=== PATIENT | male | born 1940 | race Caucasian/White ===

== ENCOUNTER 2018-01-07 13:57 | Emergency (ER) | payer MEDICARE, OTHER, SELFPAY ==
[2018-01-07 13:58] VITALS: BP 118/75; PULSE 86; RESP 16; TEMP 37; O2SAT 95; BMI 22.1
--- NOTE | 2018-01-07 14:05 | CT_ITS ---
STUDY: CT BRAIN WITHOUT CONTRAST REASON FOR EXAM: Male, 77 years old. Trauma RADIATION DOSAGE (If Supplied By Facility): CTDIvol = ( 44.99 ) mGy, DLP = ( 796.11 ) mGycm TECHNIQUE: Transaxial CT imaging of the brain was performed without administration of intravenous contrast material. Individualized dose optimization techniques were used for this CT. COMPARISON: 12/15/2017 FINDINGS: There is no acute bleed or infarct. There are stable chronic ischemic and atrophic changes. The ventricles are normal in configuration. There is no hydrocephalus. The visualized paranasal sinuses are clear. The mastoid air cells are well aerated. There is no skull fracture. CT/Brain/Head without Contrast IMPRESSION: Stable chronic ischemic and atrophic changes. No acute intracranial abnormality. Electronically Signed: Yon Candelario, at 14:57 EST Tel , Service support ,
[2018-01-07 14:07] VITALS: BP 118/75; PULSE 88; RESP 17; O2SAT 94
[2018-01-07 14:23] LABS: Absolute Neutrophil Count 4.7 X10^3/uL (2.0-7.7); Basophil# 0.02 X10^3/uL; Basophil% 0.3 % (0-1); Eosinophil# 0.12 X10^3/uL; Eosinophils% 1.8 % (0-5); Hematocrit 42.7 % (40-54); Lymphocyte % 16.1 % (19-41); Mean Corp Hgb Conc 35.1 g/gl (32-36); Mean Corpuscular Hgb 34.5 pg (27.0-32.0); Mean Corpuscular Volume 98.2 fL (80-94); Mean Platelet Vol. 9.4 fl (6.2-12.0); Monocyte# 0.86 X10^3/uL; Monocyte% 12.6 % (0-10); Neutrophil # 4.73 X10^3/uL (2.7-7.7); Neutrophil % 68.9 % (47-70); POSITIVE COUNT NO; POSITIVE DIFFERENTIAL NO; POSITIVE MORPHOLOGY NO; Platelet Count 173 K/mm3 (150-450); RBC Distribution Width CV 12.9 % (11.6-14.6); RBC Distribution Width SD 45.1 fl (35.1-43.9); Red Blood Count 4.35 M/mm3 (4.6-6.2); White Blood Count 6.9 K/mm3 (4.4-11.0)
[2018-01-07 14:27] LABS: Bacteria 0 SEEN /hpf (None Seen); Mucous, Urine 0 SEEN /hpf (<or=2+); Red Blood Cells-Urine 0 SEEN /hpf (0-5); Squamous Epithelial Cells - UA 0 SEEN /hpf (0-5); White Blood Cells 0 SEEN /hpf (0-5)
[2018-01-07 14:29] LABS: Anion Gap 7 (5-15); BUN 20 mg/dL (7-18); BUN/Creat Ratio 19.8 RATIO (10-20); Calcium,Total 8.8 mg/dL (8.5-10.1); Chloride 105 mmol/L (98-107); Creatinine, Serum 1.01 mg/dL (0.70-1.30); EST Glomerular Filtration Rate 76 mL/min (>60); Est Glom Filt Rate - Afr Amer 92 mL/min (>60); Estimated Creatinine Clearance 58.17 ml/min; Glucose 265 mg/dL (74-106); Potassium 4.1 mmol/L (3.5-5.1); Sodium Level 140 mmol/L (136-145)
--- NOTE | 2018-01-07 14:30 | ED.VISSUMM ---
- ER Visit Summary Date of Service: 01/07/18 Chief Complaint: Brought to ER because of decreased level of consciousness History of Present Illness: The patient is a 77 M arrived by ambulance because of decreased level of conscious. He had a reported fall with head injury 2 days ago. Based on old records he is on Coumadin secondary to CVA. He has a PFO. He stopped speaking and midsentence and closes eyes. He has to be awakened repeatedly. Uncertain reliability since he is disoriented and some of his answers are not related to any questions asked. He does admit to head pain. And he does admit to not feeling well. Based on review of old records he has history of dementia, CVA secondary to PFO, type 2 diabetes, hypercholesterolemia, benign prostatic hypertrophy and GERD. Physical Examination: Vital signs are unremarkable. He is afebrile. He is not alert and he is not oriented. He is unable to follow simple commands. Pupils are 1-2 mm size and sluggishly reactive. TMs are normal. Posterior pharynx without erythema x-ray. Uvula is midline. Nares are patent. There is no drainage noted. Trachea is midline. There is no evidence of trauma to the head. There is no clinical signs of basal skull fracture. There is no pain palpation of the cervical spine. Lungs are clear to auscultation. Heart is regular. Abdomen soft nontender. No pain the patient the pelvis. He has no pain palpation of the upper lower extremities. He is able to hold his arms and legs up against gravity. DTRs are symmetric with no clonus or Babinski sign. Test Results: CBC is unremarkable. BMP is marked for glucose of 265. UA is unremarkable. CT of the head was reviewed by me with no acute process. Formal read reveals no evidence of epidural, subdural, subarachnoid hemorrhage or contusion. There is no fracture noted either. Emergency Department Course and Treatment: Since he is on Coumadin and has history of head trauma CT of the head was obtained as well as PT/INR. Also a metabolic infectious workup was undertaken which included a BMP, CBC and UA. Urine was obtained by straight catheterization. Treatment Plan: Spoke with . She feels comfortable taking him home. She states she probably would appreciate assistance and help. Will place consult the case management to contact her on Tuesday regarding resources and what is available to help her out. Disposition: Discharge to home with spouse and family members Impression: 1. Closed head injury 2. High risk medication, Coumadin 3. Frequent falls 4. History of CVA This note was generated with [employer] dictation software. It may contain incorrect words, spelling, and punctuation that were not noted in review of the chart prior to signing ED Disposition - Plan for ED Patient: Disposition: Home or Assisted Living Chief Complaint: Confusion Instructions: ED Mechanical Fall, ED Altered Loc Referrals: Belem Zepeda MD [Primary Care Provider] - As Needed
[2018-01-07 14:32] LABS: Color, Urine Yellow (Yellow); Glucose, Dipstick 1000 mg/dl (Normal); Ketone-Dipstick 50 mg/dl (Negative); Leukocyte Esterase-Dipstick Negative /ul (Negative); Nitrite-Dipstick Negative (Negative); Occult Blood-Urine 25 /ul (Negative); Protein-Dipstick 30 mg/dl (Negative); Specific Gravity, Urine 1.015 (1.002-1.030); Urine Bilirubin Dipstick Negative (Negative); Urine Clarity Clear (Clear); Urine Urobilinogen Normal (Normal)
[2018-01-07 14:51] LABS: Prothrombin Time (Protime)PT. 22.2 SECONDS (11.7-14.9)
[2018-01-07 15:30] VITALS: BP 122/75; PULSE 69; RESP 15; O2SAT 96
== END 2018-01-07 15:30 | disposition home or self-care (01) ==
PROVIDERS: Emergency Provider Emergency Medicine; Family Provider Internal Medicine; PCP Internal Medicine
DX: S09.90XA Unspecified injury of head, initial encounter (principal); R41.0 Disorientation, unspecified; W19.XXXA Unspecified fall, initial encounter; Y93.9 Activity, unspecified; Y92.9 Unspecified place or not applicable; Z79.01 Long term (current) use of anticoagulants; R29.6 Repeated falls; Z86.73 Personal history of transient ischemic attack (TIA), and cerebral infarction without residual deficits; F03.90 Unspecified dementia, unspecified severity, without behavioral disturbance, psychotic disturbance, mood disturbance, and anxiety; K21.9 Gastro-esophageal reflux disease without esophagitis; E11.9 Type 2 diabetes mellitus without complications; E78.00 Pure hypercholesterolemia, unspecified; Q21.1 Atrial septal defect; N40.0 Benign prostatic hyperplasia without lower urinary tract symptoms; Z79.4 Long term (current) use of insulin; Z79.899 Other long term (current) drug therapy
CPT/HCPCS: 70450; 80048; 81001; 85025; 85610; 99285; P9612

== ENCOUNTER 2018-06-01 20:27 | Emergency (ER) | payer MEDICARE, OTHER, SELFPAY ==
[2018-06-01 20:28] VITALS: BP 111/76; PULSE 97; RESP 14; TEMP 36.5; O2SAT 98; BMI 19.9
--- NOTE | 2018-06-01 23:13 | ED.VISSUMM ---
- ER Visit Summary Date of Service: 06/01/18 Chief Complaint: Diarrhea History of Present Illness: The patient is a 77 M with history of Alzheimer's dementia and stroke, on Coumadin, who presents for 4 days of diarrhea. Patient has been having watery diarrhea with some lumps of stool for the last 4 days. He has had decreased appetite as well. No recent antibiotic use, history of C. difficile, recent travel, recent hospitalization or stay in a prison facility. Patient is having up to 3 episodes daily. No noted fever by family. History limited from patient secondary to dementia. Physical Examination: Vital signs: afebrile, hemodynamically stable, no hypoxia on room air General: well nourished, well developed, in no distress Skin: warm, dry, no rash, no pallor HEENT: normocephalic and atraumatic; PERRL, EOMI, moist mucous membranes Cardiovascular: regular rate and rhythm without murmurs, no peripheral edema, 2+ pulses all distal extremities Respiratory: No increased work of breathing, lungs are clear to auscultation bilaterally, no rales, rhonchi or wheezing Abdominal: Abdomen is soft, mildly tender with hyperactive bowel sounds, no guarding or rebound, no masses MSK: Moves all extremities, no deformities, normal strength Neuro: Awake and alert, oriented to self. No focal deficits noted Test Results: Abnormal Lab Results 06/02/18 06/02/18 06/02/18 00:15 00:30 00:30 WBC 4.7 RBC 4.03 L Hgb 13.3 Hct 38.6 L MCV 95.8 H MCH 33.0 H MCHC 34.5 RDW 12.9 RDW Differential 45.4 H Plt Count 139 L MPV 9.0 Immature Gran % (Auto) 0.200 Neut % (Auto) 55.4 Lymph % (Auto) 24.6 [place] % (Auto) 17.9 H Eos % (Auto) 1.7 Baso % (Auto) 0.2 Absolute Neuts (auto) 2.6 Absolute Lymphs (auto) 1.15 Total Counted Not Reportable PT INR APTT Sodium 139 Potassium 2.9 L Chloride 102 Carbon Dioxide 30.0 Anion Gap 7 BUN 12 Creatinine 0.80 Estim Creat Clear Calc 66.11 Est GFR (MDRD) Af Amer 120 Est GFR (MDRD) Non-Af 99 BUN/Creatinine Ratio 14.9 Glucose 168 H Lactic Acid Calcium 8.0 L Total Bilirubin 1.10 H AST 19 ALT 18 Alkaline Phosphatase 56 Troponin I Total Protein 6.3 L Albumin 3.0 L Globulin 3.3 Albumin/Globulin Ratio 0.9 Lipase 50 L Urine Color Yellow Urine Clarity Clear Urine pH 5.0 Ur Specific [place] 1.020 Urine Protein 100 H Urine Glucose (UA) 1000 H Urine Ketones 5 H Urine Occult Blood 50 H Urine Nitrite Negative Urine Bilirubin Negative Urine Urobilinogen Normal Ur Leukocyte Esterase Negative Urine RBC 0 SEEN Urine WBC 0 SEEN Ur Squamous Epith Cells 0 SEEN Urine Bacteria 0 SEEN Urine Mucus 0 SEEN 06/02/18 06/02/18 06/02/18 00:30 00:30 01:12 WBC RBC Hgb Hct MCV MCH MCHC RDW RDW Differential Plt Count MPV Immature Gran % (Auto) Neut % (Auto) Lymph % (Auto) [place] % (Auto) Eos % (Auto) Baso % (Auto) Absolute Neuts (auto) Absolute Lymphs (auto) Total Counted PT 35.5 H INR 3.5 H* APTT 57.3 H Sodium Potassium Chloride Carbon Dioxide Anion Gap BUN Creatinine Estim Creat Clear Calc Est GFR (MDRD) Af Amer Est GFR (MDRD) Non-Af BUN/Creatinine Ratio Glucose Lactic Acid 2.1 H Calcium Total Bilirubin AST ALT Alkaline Phosphatase Troponin I < 0.015 Total Protein Albumin Globulin Albumin/Globulin Ratio Lipase Urine Color Urine Clarity Urine pH Ur Specific [place] Urine Protein Urine Glucose (UA) Urine Ketones Urine Occult Blood Urine Nitrite Urine Bilirubin Urine Urobilinogen Ur Leukocyte Esterase Urine RBC Urine WBC Ur Squamous Epith Cells Urine Bacteria Urine Mucus Clinical Impression(s) from Imaging Studies Abdomen/Pelvis CT 06/02/18 00:10 IMPRESSION: 1. Apparent abnormal thickening of the vee of the transverse colon suggesting sequela of acute and/or chronic colitis. 2. Cholelithiasis. Electronically Signed: Latasha Bonilla MD at 1:59 EDT , Service support , Chest X-Ray 06/02/18 01:45 IMPRESSION: No radiographic evidence of acute cardiopulmonary disease. Electronically Signed: Latasha Bonilla MD at 2:27 EDT , Service support , Emergency Department Course and Treatment: Patient presents for eval for diarrhea for 4 days. 2-3 episodes per day and description of diarrhea is less concerning for C-diff, and pt has no risk factors for joe it. Pt given IV hydration. Workup showed no leukocytosis, K of 2.9, no UTI, lactate mildly elevated at 2.1, suspect due to mild dehydration. CT abd/pel shows nonspecific transverse colitis of acute vs. chronic nature, likely related to pt's diarrhea. Family concerned of pt having intermittent c/o chest pain, so EKG and trop added, with no EKG changes and neg trop. Pt is very well appearing and we discussed the risks/benefits of inpatient vs outpatient management, as pt has dementia and is already starting to become irritated at bieng in bed and having an IV in place. Patient has no findings that necessitate definite hospitalization for treatment. Pt was given oral K repletion, and family was amenable to outpatient tx. Pt rx Klor-con powder they can mix in food or beverage. Hydration encouraged. They will use imodium for diarrhea. F/U with PCP. Pt dc home. Treatment Plan: [] Disposition: [] Impression: Diarrhea, transverse colitis, hypokalemia, Alzheimer's dementia This note was generated with [employer] dictation software. It may contain incorrect words, spelling, and punctuation that were not noted in review of the chart prior to signing ED Disposition - Plan for ED Patient: Disposition: Home or Assisted Living Chief Complaint: Diarrhea Instructions: ED Potassium Deficiency, ED Vomiting Diarrhea Nonspecific Ad Prescriptions: Potassium Chloride [Klor-Con] 20 meq PO BID 7 Days #14 packet Referrals: Belem Zepeda MD [Primary Care Provider] - 1-2 Days if not improving Additional Instructions: You may use Imodium as needed for diarrhea. Please follow the instructions on the labeling. Your potassium was low today. Please take the potassium supplement twice daily for 1 week. Follow-up with your doctor for reevaluation of your potassium. Please also follow-up with your doctor regarding your diarrhea. Try to drink plenty of fluids to stay hydrated. If you have any worsening of your condition or any new concerning symptoms, please return immediately to the emergency department for another evaluation.
--- NOTE | 2018-06-02 00:10 | CT_ITS ---
STUDY: CT ABDOMEN AND PELVIS WITHOUT CONTRAST REASON FOR EXAM: Male, 77 years old. Diarrhea since May 28, 2018. Patient has had appendectomy. RADIATION DOSAGE (If Supplied By Facility): CTDIvol = ( 6.61 ) mGy, DLP = ( 338.67 ) mGycm TECHNIQUE: Transaxial images were obtained from the dome of the diaphragm to the symphysis pubis without oral contrast, and without intravenous contrast. Sagittal and coronal images were reconstructed. Individualized dose optimization techniques were used for this CT. COMPARISON: None. FINDINGS: There is focal pleural thickening adjacent to the posterior chest wall. This measures approximately 3.6 x 2.1 x 1.2 cm in size. There is mild bilateral basilar dependent atelectasis. This was present on the previous CT and may represent some pleural fibrosis. The visualized portions of the heart are within normal limits. Normal liver. There is a solitary gallstone. Normal spleen. There is diffuse atrophy of the pancreas. Normal bilateral adrenal glands. Normal right kidney. Normal left kidney. There is some thickening of the vee of the gastric fundus measuring up to 2.2 cm in size. There is no evidence for dilated bowel, ascites or pneumoperitoneum. Small bowel has a grossly normal appearance. There is apparent thickening of the vee the transverse colon which may be the result of acute or chronic inflammation. Scattered colonic diverticuli are present. There is non-visualization of the appendix. There is multifocal atherosclerotic calcification of the abdominal aorta with elongation and tortuosity, but without a demonstrated aneurysm. Normal inferior vena cava. There is borderline retroperitoneal lymphadenopathy with enlarged nodes no greater than 10mm in the short axis diameter. Normal urinary bladder. Normal visualized prostate gland. Normal abdominal wall. The bones appear osteopenic. There are multilevel degenerative changes of the most severe occurring at the L3-4, L4-5 and L5-S1 regions where there is narrowing of the disc spaces. There is subtle deformity the right iliac wing that may be the result of previous trauma. CT/Abdomen/Pelvis without Cont IMPRESSION: 1. Apparent abnormal thickening of the vee of the transverse colon suggesting sequela of acute and/or chronic colitis. 2. Cholelithiasis. Electronically Signed: Latasha Bonilla MD at 1:59 EDT , Service support ,
[2018-06-02 00:36] LABS: Absolute Lymphocyte Count 1.15 X10^3/ul (0.83-4.51); Absolute Neutrophil Count 2.6 X10^3/uL (2.0-7.7); Basophil# 0.01 X10^3/uL; Basophil% 0.2 % (0-1); Eosinophil# 0.08 X10^3/uL; Eosinophils% 1.7 % (0-5); Hematocrit 38.6 % (40-54); Hemoglobin 13.3 g/dl (13.0-16.5); Lymphocyte # 1.15 X10^3/ul (4.0); Lymphocyte % 24.6 % (19-41); Mean Corp Hgb Conc 34.5 g/gl (32-36); Mean Corpuscular Volume 95.8 fL (80-94); Monocyte# 0.84 X10^3/uL; Monocyte% 17.9 % (0-10); Neutrophil # 2.59 X10^3/uL (2.7-7.7); Neutrophil % 55.4 % (47-70); POSITIVE COUNT NO; POSITIVE DIFFERENTIAL NO; POSITIVE MORPHOLOGY NO; Platelet Count 139 K/mm3 (150-450); RBC Distribution Width CV 12.9 % (11.6-14.6); RBC Distribution Width SD 45.4 fl (35.1-43.9); Red Blood Count 4.03 M/mm3 (4.6-6.2); White Blood Count 4.7 K/mm3 (4.4-11.0)
[2018-06-02 00:45] LABS: Prothrombin Time (Protime)PT. 35.5 SECONDS (11.7-14.9)
[2018-06-02 00:46] LABS: Partial Thromboplast Time 57.3 Seconds (24.1-36.2)
[2018-06-02 00:52] LABS: ALB/GLOB Ratio 0.9 RATIO (0.9-2.4); AST(SGOT) 19 U/L (15-37); Alanine Aminotransfer ALT/SGPT 18 U/L (16-61); Alkaline Phosphatase 56 U/L (45-117); Anion Gap 7 (5-15); BUN 12 mg/dL (7-18); BUN/Creat Ratio 14.9 RATIO (10-20); Chloride 102 mmol/L (98-107); EST Glomerular Filtration Rate 99 mL/min (>60); Est Glom Filt Rate - Afr Amer 120 mL/min (>60); Estimated Creatinine Clearance 66.11 ml/min; Globulin 3.3 g/dL (2.2-4.2); Glucose 168 mg/dL (74-106); Lipase 50 U/L (73-393); Potassium 2.9 mmol/L (3.5-5.1); Protein, Total 6.3 g/dL (6.4-8.2); Sodium Level 139 mmol/L (136-145)
[2018-06-02 00:57] LABS: International Normalized Ratio 3.5
[2018-06-02 01:02] LABS: Bacteria 0 SEEN /hpf (None Seen); Mucous, Urine 0 SEEN /hpf (<or=2+); Red Blood Cells-Urine 0 SEEN /hpf (0-5); Squamous Epithelial Cells - UA 0 SEEN /hpf (0-5); White Blood Cells 0 SEEN /hpf (0-5)
[2018-06-02 01:04] LABS: Color, Urine Yellow (Yellow); Glucose, Dipstick 1000 mg/dl (Normal); Ketone-Dipstick 5 mg/dl (Negative); Leukocyte Esterase-Dipstick Negative /ul (Negative); Nitrite-Dipstick Negative (Negative); Occult Blood-Urine 50 /ul (Negative); Protein-Dipstick 100 mg/dl (Negative); Urine Bilirubin Dipstick Negative (Negative); Urine Clarity Clear (Clear); Urine Urobilinogen Normal (Normal)
--- NOTE | 2018-06-02 01:27 | ED.RN ---
family requests ekg. dr cifuentes orders cp workup.
--- NOTE | 2018-06-02 01:28 | EKG12_ITS ---
Test Reason : CP Blood Pressure : / mmHG Vent. Rate : 075 BPM Atrial Rate : 066 BPM P-R Int : 170 ms QRS Dur : 102 ms QT Int : 400 ms P-R-T Axes : 062 -88 047 degrees QTc Int : 446 ms Normal sinus rhythm Low voltage QRS Left anterior fascicular block Abnormal ECG Confirmed by RADHA HARRIS, KALEE ([id number]), production editor KRAIG MCCARTHY ([id number]) on 06/05/2018 3:02:07 PM Referred By: ALEX Confirmed By:KALEE GARCIA MD
--- NOTE | 2018-06-02 01:43 | ED.RN ---
LAB CALL WITH CRITICAL LACTIC ACID LEVEL. LACTIC 2.1. DR. JOHNSON INFORMED.
[2018-06-02 01:44] LABS: Lactic Acid 2.1 mmol/L (0.4-2.0)
--- NOTE | 2018-06-02 01:45 | RAD_ITS ---
STUDY: X-RAY CHEST REASON FOR EXAM: Male, 77 years old. Diarrhea since Tuesday with upper left-sided chest pain. TECHNIQUE: Single AP portable view of the chest. COMPARISON: December 15, 2017. FINDINGS: There is hyperinflation of the lungs consistent with chronic obstructive lung disease (COPD). There is mild interstitial thickening visible in both lungs. There is no demonstrated pleural abnormality. There is borderline cardiomegaly. Normal mediastinum and ronda. Normal visualized pulmonary arteries. There is atherosclerotic calcification of the aortic arch with tortuosity. There is demineralization of the osseous structures. There are degenerative changes of the thoracic spine. There are mild degenerative changes of both shoulders. There is no demonstrated abnormality of the visualized soft tissue structures of the upper abdomen. RAD/Chest 1 View (Portable) IMPRESSION: No radiographic evidence of acute cardiopulmonary disease. Electronically Signed: Latasha Bonilla MD at 2:27 EDT , Service support ,
[2018-06-02 02:36] VITALS: BP 122/83; PULSE 72; RESP 16; O2SAT 96
--- NOTE | 2018-06-02 03:16 | ED.DEP ---
ED Disposition - Plan for ED Patient: Disposition: Home or Assisted Living Chief Complaint: Diarrhea Instructions: ED Vomiting Diarrhea Nonspecific Ad, ED Potassium Deficiency Prescriptions: Potassium Chloride [Klor-Con] 20 meq PO BID 7 Days #14 packet Referrals: Belem Zepeda MD [Primary Care Provider] - 1-2 Days if not improving Additional Instructions: You may use Imodium as needed for diarrhea. Please follow the instructions on the labeling. Your potassium was low today. Please take the potassium supplement twice daily for 1 week. Follow-up with your doctor for reevaluation of your potassium. Please also follow-up with your doctor regarding your diarrhea. Try to drink plenty of fluids to stay hydrated. If you have any worsening of your condition or any new concerning symptoms, please return immediately to the emergency department for another evaluation.
--- NOTE | 2018-06-02 03:24 | ED.RN ---
GAVE PT 2 K+ TABS. BOTH WERE TAKEN BY PT THEN SPIT ON THE FLOOR. 50 MEQ K-CHLOR EFFERVESCENT TABS ORDERED BY DR JOHNSON.
[2018-06-02 05:15] LABS: Reflex Lactate? Y
== END 2018-06-02 04:10 | disposition home or self-care (01) ==
PROVIDERS: Emergency Provider Emergency Medicine; Family Provider Internal Medicine; PCP Internal Medicine
DX: K52.9 Noninfective gastroenteritis and colitis, unspecified (principal); E87.6 Hypokalemia; G30.9 Alzheimer's disease, unspecified; F02.80 Dementia in other diseases classified elsewhere, unspecified severity, without behavioral disturbance, psychotic disturbance, mood disturbance, and anxiety; E11.9 Type 2 diabetes mellitus without complications; Z79.84 Long term (current) use of oral hypoglycemic drugs; Z79.01 Long term (current) use of anticoagulants; Z79.899 Other long term (current) drug therapy; Z86.73 Personal history of transient ischemic attack (TIA), and cerebral infarction without residual deficits
CPT/HCPCS: 71045; 74176; 80053; 81001; 83605; 83690; 84484; 85025; 85610; 85730; 93005; 96360; 96361; 99285; J7030

== ENCOUNTER 2018-06-18 14:56 | Observation (INO) | payer MEDICARE, OTHER, SELFPAY ==
[2018-06-18] VITALS (10 sets, daily range): BP systolic 113–145; BP diastolic 63–79; PULSE 57–74; RESP 16–18; TEMP 36.6–37.2; O2SAT 95–100; BMI 20.4; BMI 19.7
--- NOTE | 2018-06-18 15:10 | NURSING ---
NO LW OR POA
--- NOTE | 2018-06-18 15:15 | RAD_ITS ---
STUDY: X-RAY CHEST REASON FOR EXAM: Male, 77 years old. Chest pain. TECHNIQUE: Portable frontal. COMPARISON: June 02, 2018 FINDINGS: There is no new focal consolidation. There is a stable vague opacity within the right lower lung which may be secondary to underlying scarring and/or atelectasis. Normal size heart. Normal mediastinum and ronda. Normal visualized pulmonary arteries. Normal visualized aortic arch and descending thoracic aorta. There are diffuse degenerative changes of the visualized thoracic spine. Normal visualized ribs, clavicles, and shoulders. There is no demonstrated abnormality of the visualized soft tissue structures of the upper abdomen. RAD/Chest 1 View (Portable) IMPRESSION: Stable examination demonstrating no acute cardiopulmonary process. Electronically Signed: Sandy Ray MD at 16:27 EDT Tel , Service support ,
--- NOTE | 2018-06-18 15:15 | EKG12_ITS ---
Test Reason : Blood Pressure : / mmHG Vent. Rate : 067 BPM Atrial Rate : 067 BPM P-R Int : 218 ms QRS Dur : 096 ms QT Int : 412 ms P-R-T Axes : 054 -78 057 degrees QTc Int : 435 ms Sinus rhythm with 1st degree A-V block Left anterior fascicular block Low voltage QRS (LIMB LEADS) Abnormal ECG Confirmed by TERRELL HARRIS, THERESA ([id number]), news videotape editor KRAIG MCCARTHY ([id number]) on 06/20/2018 1:08:36 PM Referred By: FERCHO Confirmed By:THERESA TEJADA MD
--- NOTE | 2018-06-18 15:26 | ED.DCSUM_ITS ---
- ER Visit Summary Date of Service: 06/18/18 Chief Complaint: [Chest pain] History of Present Illness: The patient is a 77 M [presents the emergency department with complaint of chest discomfort that is left-sided and started about an hour ago. Patient is a very poor historian due to his history of dementia. Some of the history comes from patient's . Patient does have a history of prior stroke as well as diabetes and depression. When asked if he has had nausea or diaphoresis or shortness of breath with this chest discomfort he says yes. Patient cannot really describe the pain. Patient tells me he still has some other discomfort but when asked a second time he states that it is gone. Patient has not had any fever or cough per . Patient has not had recent travel. Patient is on warfarin chronically.] Physical Examination: [HEENT-PERRLA, EOMI. Cranial nerves II through XII grossly intact. TMs clear. Mucous membranes moist. No adenopathy. Cardiovascular-regular rate and rhythm without murmur or ectopy Lungs-clear to auscultation, chest wall stable without crepitus or subcu emphysema Abdomen-normoactive bowel sounds, soft, nontender, no rebound or rigidity, no peritoneal signs. Extremities-intact ?4, normal range of motion, normal pulses, atraumatic] Test Results: [EKG obtained showed a sinus rhythm with a ventricular rate of 67 bpm with a first-degree AV block and a left anterior fascicular block.] CBC with differential showed a white count 6.0, hemoglobin 14, hematocrit 42, platelets 171. Chemistries unremarkable. INR was 1.8 and troponin was less than 0.015. Chest x-ray showed nothing acute. Emergency Department Course and Treatment: Patient received aspirin in the department. [] Treatment Plan: [Admit for further workup and evaluation of chest pain] Disposition: Admit [] Impression: Chest pain-rule out acute coronary syndrome [] This note was generated with [employer] dictation software. It may contain incorrect words, spelling, and punctuation that were not noted in review of the chart prior to signing ED Disposition - Plan for ED Patient: Chief Complaint: Chest Pain Referrals: Belem Zepeda MD [Primary Care Provider] -
[2018-06-18 15:28] LABS: International Normalized Ratio 1.8; Prothrombin Time (Protime)PT. 20.5 SECONDS (11.7-14.9)
[2018-06-18] MEDS: 0.9% Normal Saline 1,000 ML 150 ML IV (15:28)
[2018-06-18] MEDS: Aspirin 81 MG TAB.CHEW 324 MG PO (15:28)
[2018-06-18 15:32] LABS: Absolute Lymphocyte Count 1.22 X10^3/ul (0.83-4.51); Absolute Neutrophil Count 4.2 X10^3/uL (2.0-7.7); Basophil# 0.02 X10^3/uL; Basophil% 0.3 % (0-1); Eosinophil# 0.06 X10^3/uL; Hematocrit 41.8 % (40-54); Lymphocyte # 1.22 X10^3/ul (4.0); Lymphocyte % 20.3 % (19-41); Mean Corp Hgb Conc 33.5 g/gl (32-36); Mean Corpuscular Volume 98.6 fL (80-94); Mean Platelet Vol. 9.1 fl (6.2-12.0); Monocyte# 0.52 X10^3/uL; Monocyte% 8.7 % (0-10); Neutrophil # 4.18 X10^3/uL (2.7-7.7); Neutrophil % 69.7 % (47-70); Platelet Count 171 K/mm3 (150-450); RBC Distribution Width CV 13.1 % (11.6-14.6); RBC Distribution Width SD 46.9 fl (35.1-43.9); Red Blood Count 4.24 M/mm3 (4.6-6.2)
[2018-06-18 15:37] LABS: Anion Gap 4 (5-15); BUN 14 mg/dL (7-18); BUN/Creat Ratio 14.4 RATIO (10-20); Calcium,Total 8.6 mg/dL (8.5-10.1); Chloride 105 mmol/L (98-107); Creatinine, Serum 0.97 mg/dL (0.70-1.30); EST Glomerular Filtration Rate 80 mL/min (>60); Est Glom Filt Rate - Afr Amer 97 mL/min (>60); Estimated Creatinine Clearance 57.46 ml/min; Glucose 293 mg/dL (74-106); Potassium 4.1 mmol/L (3.5-5.1); Sodium Level 140 mmol/L (136-145)
[2018-06-18 15:42] LABS: POSITIVE COUNT NO; POSITIVE DIFFERENTIAL NO; POSITIVE MORPHOLOGY NO
--- NOTE | 2018-06-18 16:04 | NURSING ---
DR VASQUEZ IN WITH PATIENT
--- NOTE | 2018-06-18 16:15 | PCM.HP.STD ---
Problem List (1) Type II diabetes mellitus Status: Chronic (2) HLD (hyperlipidemia) Status: Chronic (3) Chronic neck pain Status: Chronic (4) Neck fusion surgeries Status: Chronic (5) Stroke PFO on Coumadin Status: Chronic (6) Dementia Status: Chronic (7) Depression Status: Chronic (8) BPH (benign prostatic hypertrophy) with urinary retention Status: Chronic History of Present Illness Date of Admission: 06/18/18 Chief Complaint: Chest pain. The patient is a 77 year old M with past medical history as mentioned above presented to the emergency room because of chest pain. The patient is demented and was not able to provide any good history. Patient's and his brother were at the bedside and I got most of the information from his . According to the patient's , patient started complaining of left-sided chest pain around 2 PM today when he was walking. No reported associated shortness of breath, syncope, dizziness, lightheadedness, nausea, vomiting or sweating. The patient mentioned that he is still having chest pain at this time. He has a history of type 2 diabetes mellitus and he has been on Lantus, Januvia and glimepiride and according to his , his blood sugar has been under fair control. He has a history of stroke due to patent foramen ovale and he has been on Coumadin for anticoagulation. He has history of dementia and he has been on Namenda. He has history of hyperlipidemia and he has been on statins. In the emergency department, his vital signs are stable. His routine blood work was unremarkable. INR was 1.8. Troponin was negative. EKG revealed normal sinus rhythm with first-degree AV block, no acute ischemic changes. Chest x-ray showed no acute findings. He is being admitted for chest pain for evaluation. Past Medical History Past Medical History (Chronic Problems): Chronic Problems Type II diabetes mellitus (Chronic) HLD (hyperlipidemia) (Chronic) Cervical disc disease (Chronic) Chronic neck pain (Chronic) Neck fusion surgeries (Chronic) Stroke PFO on Coumadin (Chronic) Dementia (Chronic) Depression (Chronic) BPH (benign prostatic hypertrophy) with urinary retention (Chronic) Allergic rhinitis (Chronic) Allergies amitriptyline HCl [From Elavil] Adverse Reaction (Verified 06/18/18 14:58) Other codeine Adverse Reaction (Verified 06/18/18 14:58) Unknown meloxicam Adverse Reaction (Verified 06/18/18 14:58) Other metformin Adverse Reaction (Verified 06/18/18 14:58) Other tamsulosin HCl [From Flomax] Adverse Reaction (Verified 06/18/18 14:58) Other thioridazine HCl [From Mellaril] Adverse Reaction (Verified 06/18/18 14:58) Other Tricyclic Compounds Adverse Reaction (Verified 06/18/18 14:58) Other Home Medications: Ambulatory Orders Medication Instructions Recorded Glimepiride [Amaryl] 2 mg PO BID 11/07/16 Insulin Glargine,Hum.rec.anlog 20 unit SC QHS 11/07/16 [Lantus] Propranolol HCl [Inderal (Beta 10 mg PO BID 11/07/16 Jagjit)] Simvastatin [Zocor] 20 mg PO QHS 11/07/16 Trazodone HCl 150 mg PO QHS 11/07/16 Vitamin E 1,000 unit PO DAILY 11/07/16 Warfarin [Coumadin] 3 mg PO DAILY 11/07/16 Sitagliptin Phosphate [Januvia] 100 mg PO BREAKFAST 01/28/17 Fluticasone 0.05% [Flonase Nasal 2 spray NASAL DAILY 06/02/18 [place]] Lorazepam [Ativan] 0.5 mg PO BID 06/02/18 Memantine HCl [Namenda Xr] 28 mg PO DAILY 06/18/18 Surgical History: appendectomy, - - Neck surgery, back surgery. Psychiatric History: Depression Lives: Spouse/ Significant Other Smoking Status: Never smoker Alcohol: None Drugs: None - *Family History Maternal History Items: No pertinent history Paternal History Items: No pertinent history Review of Systems Constitutional: Denies: Anorexia, Chills, Fever, Weakness Eyes: Denies: Blurred vision, Double vision, Redness HEENT: Denies: Difficulty Hearing, Ear Pain, Nasal Congestion, Sore Throat Cardiovascular: Reports: Chest Pain. Denies: Chest Tightness, Light Headedness, Palpitations, Syncope Respiratory: Denies: Cough, Shortness of Breath, Sputum production, Wheezing Gastrointestinal: Denies: Abdominal Pain, Constipation, Diarrhea, Nausea, Vomiting Genitourinary: Denies: Dysuria, Frequency, Hematuria Musculoskeletal: Denies: Arm Pain, Foot Pain, Leg Pain Skin: Denies: Dryness, Rash Neurological: Denies: Balance problems, Double vision, Change in Speech, Headaches, Incoordination, Numbness Psychiatric: Reports: Depression. Denies: Anxiety Endocrine: Denies: Change in Body Habitus, Polydipsia VTE Information - Inpt Only VTE Present on Admission: No VTE Mechan Device Prophylaxis: None VTE Pharm Prophylaxis ordered?: No - Physical Exam General: Alert, Cooperative, No apparent distress HEENT: Atraumatic, PERRLA, EOMI, Normocephalic Oral: Moist Mucosa, No Gingival or Mucosal Lesions/ Ulcerations Neck: Supple, No JVD, Negative Carotid Bruits, Trachea Midline, Thyroid Normal Size and Texture Lungs: Clear to auscultation, No rhonchi, No wheeze, No rales, Diminished Cardiovascular: Regular rate, Regular Rhythm, Normal S1, Normal S2, PMI Normal Abdomen: Bowel Sounds Present, Soft, Non Tender, Non-Distended, No Hepato-splenomegaly Extremities: No clubbing, No cyanosis, No edema Skin: No rashes, No breakdown Lymphatic: No Cervical, Supraclavicular, or Inguinal Adenopathy Neurological: Cranial nerves II-XII grossly intact, Motor Exam 5/5 strength throughout Psych/Mental Status: Normal Affect, Appropriate Vital Signs Temp Pulse Resp BP Pulse Ox 98.5 F 58 L 16 144/79 H 100 06/18/18 14:58 06/18/18 16:02 06/18/18 16:02 06/18/18 16:02 06/18/18 16:02 Oxygen Flow Rate (L/min) 98 Oxygen Delivery Method Room Air Weight: 138 lb 3.677 oz Body Mass Index (BMI) 20.4 Finger Stick Blood Glucose 299 Laboratory Tests Past 24 Hrs 06/18/18 06/18/18 06/18/18 15:05 15:05 15:05 WBC 6.0 RBC 4.24 L Hgb 14.0 Hct 41.8 MCV 98.6 H MCH 33.0 H MCHC 33.5 RDW 13.1 RDW Differential 46.9 H Plt Count 171 MPV 9.1 Immature Gran % (Auto) 0.000 Neut % (Auto) 69.7 Lymph % (Auto) 20.3 [place] % (Auto) 8.7 Eos % (Auto) 1.0 Baso % (Auto) 0.3 Absolute Neuts (auto) 4.2 Absolute Lymphs (auto) 1.22 Total Counted Not Reportable PT 20.5 H INR 1.8 Sodium 140 Potassium 4.1 Chloride 105 Carbon Dioxide 31.0 Anion Gap 4 L BUN 14 Creatinine 0.97 Estim Creat Clear Calc 57.46 Est GFR (MDRD) Af Amer 97 Est GFR (MDRD) Non-Af 80 BUN/Creatinine Ratio 14.4 Glucose 293 H Calcium 8.6 Troponin I < 0.015 Assessment/Plan This is a 77 years old male patient with history of dementia presented to the emergency room because of chest pain and he is being admitted for evaluation. #1 chest pain: Patient is poor informant, not able to provide detailed history. Risk factors are age, type 2 diabetes and hyperlipidemia. Initial EKG revealed sinus rhythm with first-degree AV block, no acute ischemic changes. Troponin is negative. Chest x-ray showed no acute findings. Plan: Admit to PCU for observation, cardiac monitoring, serial cardiac enzymes, repeat EKG tomorrow morning, sublingual nitroglycerin as needed, Tylenol as needed, nuclear stress test tomorrow morning if cardiac enzymes are negative, PT OT evaluation and treatment. #2 type 2 diabetes mellitus: ADA diet, Accu-Cheks, insulin sliding scale, continue home doses of Lantus, continue glimepiride and Januvia #3 hyperlipidemia: Continue statins. #4 history of stroke/patent foramen ovale: Without significant residual deficit. Patient has been on Coumadin. INR is 1.8. Plan to continue Coumadin, repeat INR tomorrow morning. #5 chronic neck pain/cervical disc disease: Stable, no acute issues. He is not taking any pain medicine at home. Plan for Tylenol as needed. #6 dementia: Continue Namenda. #7 depression/anxiety: Continue trazodone and Ativan. #8 DVT prophylaxis: INR is 1.8. This note was generated with [employer] dictation software. It may contain incorrect words, spelling, and punctuation that were not noted in checking the note before signing. Code Visit OBSV E&M: 12569 Initial observation care L3
--- NOTE | 2018-06-18 16:21 | NURSING ---
PCU OBS AAKASH VASQUEZ
--- NOTE | 2018-06-18 17:11 | NURSING ---
Rene notified patient may transfer to PCU
--- NOTE | 2018-06-18 17:40 | EKG12_ITS ---
Test Reason : CP Blood Pressure : / mmHG Vent. Rate : 061 BPM Atrial Rate : 061 BPM P-R Int : 242 ms QRS Dur : 094 ms QT Int : 428 ms P-R-T Axes : 070 -60 050 degrees QTc Int : 430 ms Sinus rhythm with 1st degree A-V block Low voltage QRS Left anterior fascicular block Inferior infarct , age undetermined , cannot be excluded Abnormal ECG Confirmed by TERRELL HARRIS, THERESA ([id number]), pictures editor KRAIG MCCARTHY ([id number]) on 06/20/2018 2:22:03 PM Referred By: PEDRO Confirmed By:THERESA TEJADA MD
[2018-06-18 18:20] LABS: Bedside Glucose 167 mg/dL (70-110)
[2018-06-18] MEDS: LORazepam 0.5 MG Tablet PO (19:19)
--- NOTE | 2018-06-18 19:41 | NURSING ---
PATIENT CONFUSED AT THIS TIME, STATES THIS IS HIS BASELINE, WALKING AROUND IN ROOM REFUSING TO PUT ON HEART MONITOR AT THIS TIME.
--- NOTE | 2018-06-18 21:30 | NURSING ---
PATIENT CHANGED TO ROOM 128
[2018-06-18] MEDS: traZODone 50 MG Tablet 150 MG PO (21:43)
[2018-06-18] MEDS: Propranolol 10 MG Tablet PO (21:43)
[2018-06-18] MEDS: Atorvastatin Calcium 10 MG Tablet PO (21:43)
[2018-06-18] MEDS: Insulin Lispro 100 UNIT/ML INSULN.PEN SC (21:44)
[2018-06-18 21:50] LABS: Bedside Glucose 242 mg/dL (70-110)
[2018-06-19 03:40] VITALS: BP 122/78; PULSE 68; RESP 16; TEMP 36.6; O2SAT 96
--- NOTE | 2018-06-19 05:30 | NURSING ---
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 EKG DONE NO CHANGES NOTES. PATIENT IS VERY VAGUE WITH SYMPTOMS AND STATES PAIN IS ALMOST GONE AND HAS WENT TO SLEEP.
--- NOTE | 2018-06-19 05:55 | EKG12_ITS ---
Test Reason : AM EKG Blood Pressure : / mmHG Vent. Rate : 060 BPM Atrial Rate : 060 BPM P-R Int : 240 ms QRS Dur : 098 ms QT Int : 440 ms P-R-T Axes : 065 -46 056 degrees QTc Int : 440 ms Sinus rhythm with 1st degree A-V block Left anterior fascicular block Abnormal ECG Confirmed by TERRELL HARRIS, THERESA ([id number]), manuscript editor KRAIG MCCARTHY ([id number]) on 06/20/2018 2:17:05 PM Referred By: PEDRO Confirmed By:THERESA TEJADA MD
--- NOTE | 2018-06-19 06:03 | NURSING ---
CALLED STRESS TEST RN, MADE AWARE OF CHEST PAIN THIS AM WHILE WALKING AND BS 73, STATES OKAY TO GIVE A LITTLE BIT OF ORANGE JUICE.
[2018-06-19 06:30] LABS: International Normalized Ratio 1.8; Prothrombin Time (Protime)PT. 21.1 SECONDS (11.7-14.9)
[2018-06-19 07:08] VITALS: PULSE 50
[2018-06-19 07:16] LABS: Bedside Glucose 73 mg/dL (70-110)
--- NOTE | 2018-06-19 08:16 | DCINST_ITS ---
You will use the following diet at home:: Calorie/Carbohydrate Controlled ( specify 1200, 1400, etc) - 1800 soco, Cardiac Your food should be the consistency of: Regular Discharge Activity: Return to Normal Activity Weight Bearing Status: Weight bearing as tolerated Call your doctor if you observe: Fever of 101 or Higher, Shortness of breath, Dizziness, Fainting spells, Chest pain, Increased palpitations (irregular heartbeat), Uncontrolled pain Allergies/Adverse Reactions: Allergies amitriptyline HCl [From Elavil] Adverse Reaction (Verified 06/18/18 14:58) Other codeine Adverse Reaction (Verified 06/18/18 14:58) Unknown meloxicam Adverse Reaction (Verified 06/18/18 14:58) Other metformin Adverse Reaction (Verified 06/18/18 14:58) Other tamsulosin HCl [From Flomax] Adverse Reaction (Verified 06/18/18 14:58) Other thioridazine HCl [From Mellaril] Adverse Reaction (Verified 06/18/18 14:58) Other Tricyclic Compounds Adverse Reaction (Verified 06/18/18 14:58) Other Medications to take at Discharge Glimepiride [Amaryl] 2 mg PO BID 11/07/16 Insulin Glargine,Hum.rec.anlog [Lantus] 20 unit SC QHS 11/07/16 Propranolol HCl [Inderal (Beta Jagjit)] 10 mg PO BID 11/07/16 Simvastatin [Zocor] 20 mg PO QHS 11/07/16 Trazodone HCl 150 mg PO QHS 11/07/16 Warfarin [Coumadin] 3 mg PO DAILY 11/07/16 Sitagliptin Phosphate [Januvia] 100 mg PO BREAKFAST 01/28/17 Lorazepam [Ativan] 0.5 mg PO BID 06/02/18 Primary Care Physician: Belem Zepeda MD [Primary Care Provider] - Please follow up with your Primary Care Physician in: 2 weeks. Test Results: Test results from this visit will be discussed in further detail at your follow- up appointment, if applicable.
--- NOTE | 2018-06-19 11:21 | DS.PCM_ITS ---
Discharge Date and Diagnosis Date of Admission: 06/18/18 Date of Discharge: 06/19/18 - Primary Discharge Diagnosis Chest pain. - Secondary Discharge Diagnosis Chronic Problems Type II diabetes mellitus (Chronic) HLD (hyperlipidemia) (Chronic) Cervical disc disease (Chronic) Chronic neck pain (Chronic) Neck fusion surgeries (Chronic) Stroke PFO on Coumadin (Chronic) Dementia (Chronic) Depression (Chronic) BPH (benign prostatic hypertrophy) with urinary retention (Chronic) Allergic rhinitis (Chronic) Hospital Course and Treatment Imaging Results: Clinical Impression(s) from Imaging Studies Chest X-Ray 06/18/18 15:15 IMPRESSION: Stable examination demonstrating no acute cardiopulmonary process. Electronically Signed: Sandy Ray MD at 16:27 EDT Tel , Service support , Operations: None Procedures: EKG Summary of Care Provided: Patient seen and examined on the day of discharge and appeared to be stable to be discharged home. He remained very confused and disoriented, not obeying commands and does not follow instructions. He went down for stress test and he was not able to do any instructions that he was told to do. He kept staring without any actions. He does have history of dementia and his mentioned that he does have this problem at home as well. He is very unreliable and sometimes he said he has no more chest pain and when you ask him again, he complained of chest pain. His vital signs are stable. - Physical Exam General: Alert, confused, Cooperative, No apparent distress. HEENT: Atraumatic, PERRLA, EOMI. Neck: Supple, No JVD, Negative Carotid Bruits, Trachea Midline, Thyroid Normal. Lungs: Clear to auscultation, Normal air movement, No rhonchi, No wheeze, No rales. Cardiovascular: Regular rate, Regular Rhythm, Normal S1, Normal S2, PMI Normal. Abdomen: Bowel Sounds Present, Soft, Non Tender, Non-Distended, No Hepato- splenomegaly. Extremities: No clubbing, No cyanosis, No edema Skin: No rashes, No breakdown Neurological: Neuro grossly intact Vital Signs are stable. Hospital course: The patient is a 77 year old M admitted because of chest pain for evaluation. The patient has history of dementia with baseline confusion and disorientation and he was very unreliable. His initial workup including EKG which was unremarkable without evidence of acute ischemic changes. Troponin was negative ?3. Chest x-ray showed no acute findings. Repeat EKG from today again showed no evidence of acute ischemic changes. Patient was taken down for stress test and he was not able to follow the instructions to do the stress test. He was just staring and not able to follow commands. His mentioned that that this is baseline at home all the time. On the day of discharge, patient was seen and examined again and he kept saying that he does not have chest pain and when I asked him again, he complains of chest pain. He is very unreliable. I explained to the patient's and his brother that his initial and repeat EKG was unremarkable and his cardiac enzymes were negative ?3. I informed them that patient was not able to follow instructions and commands to complete the stress test. They were informed that at this point, there is no evidence of acute heart attack but underlying coronary artery disease cannot be ruled out. After discussion with the patient's and brother, decision was made to discharge the patient home. Patient discharged home in a stable medical condition, recommended to use Tylenol or ibuprofen as needed for pain, recommended to return to the ED if the pain got worse or started having symptoms such as shortness of breath, nausea vomiting, dizziness or lightheadedness or the pain did not go away. Patient discharged home on the same medication that he was taking, recommended follow-up with PCP in 2 weeks. Discharge Activity: Return to Normal Activity Weight Bearing Status: Weight bearing as tolerated Call your doctor if you observe: Fever of 101 or Higher, Shortness of breath, Dizziness, Fainting spells, Chest pain, Increased palpitations (irregular heartbeat), Uncontrolled pain Home Medications: Medications to take at Discharge Glimepiride [Amaryl] 2 mg PO BID 11/07/16 Insulin Glargine,Hum.rec.anlog [Lantus] 20 unit SC QHS 11/07/16 Propranolol HCl [Inderal (Beta Jagjit)] 10 mg PO BID 11/07/16 Simvastatin [Zocor] 20 mg PO QHS 11/07/16 Trazodone HCl 150 mg PO QHS 11/07/16 Warfarin [Coumadin] 3 mg PO DAILY 11/07/16 Sitagliptin Phosphate [Januvia] 100 mg PO BREAKFAST 01/28/17 Lorazepam [Ativan] 0.5 mg PO BID 06/02/18 Primary Care Physician: Belem Zepeda MD [Primary Care Provider] - Please follow up with your Primary Care Physician in: 2 weeks. Disposition: Home Minutes spent on discharge:: 26 Patient Condition:: Stable Medical Necessity - Tobacco Use Smoking Status: Never smoker Meaningful Use Info Meaningful Use Diagnoses (Choose all that apply): None applicable Code Visit OBSV E&M: 77000 Observation care discharge
== END 2018-06-19 08:16 | disposition home or self-care (01) ==
LOC: ED 16:26 → PCU 17:13
PROVIDERS: Admitting Provider Hospitalist; Emergency Provider Emergency Medicine; Family Provider Internal Medicine; PCP Internal Medicine; Visit Provider Hospitalist
DX: R07.89 Other chest pain (principal); E11.9 Type 2 diabetes mellitus without complications; F32.9 Major depressive disorder, single episode, unspecified; F03.90 Unspecified dementia, unspecified severity, without behavioral disturbance, psychotic disturbance, mood disturbance, and anxiety; I44.0 Atrioventricular block, first degree; I44.4 Left anterior fascicular block; E78.5 Hyperlipidemia, unspecified; G89.29 Other chronic pain; M54.2 Cervicalgia; N40.1 Benign prostatic hyperplasia with lower urinary tract symptoms; R33.8 Other retention of urine; Q21.1 Atrial septal defect; F41.9 Anxiety disorder, unspecified; Z86.73 Personal history of transient ischemic attack (TIA), and cerebral infarction without residual deficits; Z79.899 Other long term (current) drug therapy; Z70.1 Counseling related to patient's sexual behavior and orientation; Z79.4 Long term (current) use of insulin; Z98.1 Arthrodesis status
CPT/HCPCS: 36415; 71045; 80048; 82962; 84484; 85025; 85610; 93005; 99218; 99285; J7030; A4216; G0378

== ENCOUNTER 2018-07-23 11:21 | Emergency (ER) | payer MEDICARE, OTHER, SELFPAY ==
[2018-07-23 11:22] VITALS: BP 138/72; PULSE 67; RESP 16; TEMP 36.2; O2SAT 100; BMI 19.8
--- NOTE | 2018-07-23 12:04 | ED.VISSUMM ---
- ER Visit Summary Date of Service: 07/23/18 Chief Complaint: Fall History of Present Illness: The patient is a 77 M who presents after a fall that occurred today. Patient fell out of bed and hit his head on the nightstand drawer. Family denies any loss of consciousness. Patient has a history of dementia and is a poor historian. Family states the patient was up and awake most of the night but now wants to sleep. Family states patient is otherwise acting normal. Family is unsure of the last tetanus. Physical Examination: Vital signs are stable. Patient is afebrile. Patient is in no acute distress. Skin is warm dry. There is a 4 cm full-thickness linear laceration over the top of the scalp. There is no bony crepitance or step-off noted. There is no active bleeding noted. There is no foreign body noted. Cranial nerves II through XII are grossly intact. There are no obvious focal motor or sensory deficits noted. Heart was regular rate and rhythm. Lungs are clear and equal bilaterally. Abdomen is soft and nontender. Remaining physical exam is within normal limits. Test Results: CT scan of the brain was obtained. There is no acute intracranial abnormality noted. Emergency Department Course and Treatment: The wound was cleaned and anesthetized with 1% plain lidocaine locally. Wound was closed with 3 babs. Patient tolerated the procedure well. Family was instructed to follow-up with the patient's primary care physician in 5-7 days for wound recheck and staple removal. Family understood and was agreeable with the plan. All questions were answered. Disposition: Discharge home Impression: Scalp laceration This note was generated with [employer] dictation software. It may contain incorrect words, spelling, and punctuation that were not noted in review of the chart prior to signing ED Disposition - Plan for ED Patient: Disposition: Home or Assisted Living Chief Complaint: Fall Diagnosis: Laceration of scalp Instructions: ED Laceration All Referrals: Belem Zepeda MD [Primary Care Provider] -
[2018-07-23] MEDS: Diphth,Pertuss(Acell),Tet Vac 0.5 ML Vial IM (13:01)
[2018-07-23] MEDS: Lidocaine/Epi/Tetracaine 50 ML 1 APPLIC TOPICAL (13:02)
[2018-07-23 13:34] VITALS: RESP 14
[2018-07-23 15:05] VITALS: PULSE 85; RESP 16; O2SAT 100
== END 2018-07-23 15:07 | disposition home or self-care (01) ==
PROVIDERS: Emergency Provider Emergency Medicine; Family Provider Internal Medicine; PCP Internal Medicine
DX: S01.01XA Laceration without foreign body of scalp, initial encounter (principal); W06.XXXA Fall from bed, initial encounter; Y93.9 Activity, unspecified; Y92.9 Unspecified place or not applicable; F03.90 Unspecified dementia, unspecified severity, without behavioral disturbance, psychotic disturbance, mood disturbance, and anxiety; Z86.73 Personal history of transient ischemic attack (TIA), and cerebral infarction without residual deficits; Z79.4 Long term (current) use of insulin; Z79.01 Long term (current) use of anticoagulants; Z79.899 Other long term (current) drug therapy
CPT/HCPCS: 12002; 70450; 90715; 99283

== ENCOUNTER 2018-08-06 08:20 | Emergency (ER) | payer SELFPAY ==
[2018-08-06 08:21] VITALS: BP 126/73; PULSE 77; RESP 16; O2SAT 98
[2018-08-06 08:22] VITALS: BP 126/73; PULSE 64; RESP 16; TEMP 35.6; O2SAT 99; BMI 20.7
--- NOTE | 2018-08-06 08:32 | ED.VISSUMM ---
- ER Visit Summary Date of Service: 08/06/18 Chief Complaint: [] Fall at home History of Present Illness: The patient is a 77 M [] little is known about the patient's history brought in by EMS apparently he is suffering from profound Alzheimer's dementia he is only oriented to himself brought in by EMS he apparently fell per the family found on the ground paramedics were called he was brought to the hospital the patient cannot provide history and the EMS providers reported that history above the patient knows his name he smiling moving all 4 extremities he has an abrasion or laceration to his forehead and there is some concern that he is indicating he has neck pain and he is under hospice care related to all the above Physical Examination: [] Vital signs are within normal range he is a thin gentleman he has a very superficial laceration to the forehead his HEENT exam is unremarkable his heart tones and lungs sound clear and regular the abdomen soft he is moving all 4 extremities his back is not grossly tender he is in a c-collar he has some nonspecific neck pain is moving all 4 extremities she is uncooperative to exam and cannot provide any additional history Test Results: [] Emergency Department Course and Treatment: [] He is hemodynamically stable no other signs of injury family has yet to arrive at this time will proceed with head CT neck CT and observation Treatment Plan: [] Disposition: [] The patient's CT head and neck are unremarkable family confirms the above the consultation came home if no other complaints or concerns and will continue his hospice therapy at home we did cleanse the cysts forehead laceration apply Steri-Strip Impression: [] Fall with head neck injury, 1 cm forehead laceration This note was generated with [employer] dictation software. It may contain incorrect words, spelling, and punctuation that were not noted in review of the chart prior to signing ED Disposition - Plan for ED Patient: Chief Complaint: Fall Referrals: Belem Zepeda MD [Primary Care Provider] -
--- NOTE | 2018-08-06 10:06 | ED.DEP ---
ED Disposition - Plan for ED Patient: Chief Complaint: Fall Instructions: ED Mechanical Fall, ED Avulsion Dermal, ED Laceration All Referrals: Belem Zepeda MD [Primary Care Provider] -
[2018-08-06 10:32] VITALS: BP 130/78; PULSE 87; RESP 18; O2SAT 98
[2018-08-06 11:07] VITALS: BP 127/87; PULSE 78; RESP 16; TEMP 36.2; O2SAT 100
== END 2018-08-06 11:08 | disposition home or self-care (01) ==
LOC: ED 08:43
PROVIDERS: Emergency Provider Emergency Medicine; Family Provider Internal Medicine; PCP Internal Medicine
DX: S19.9XXA Unspecified injury of neck, initial encounter (principal); S01.81XA Laceration without foreign body of other part of head, initial encounter; W19.XXXA Unspecified fall, initial encounter; Y93.9 Activity, unspecified; Y92.009 Unspecified place in unspecified non-institutional (private) residence as the place of occurrence of the external cause; G30.9 Alzheimer's disease, unspecified; F02.80 Dementia in other diseases classified elsewhere, unspecified severity, without behavioral disturbance, psychotic disturbance, mood disturbance, and anxiety; Z51.5 Encounter for palliative care; Z79.01 Long term (current) use of anticoagulants; Z79.899 Other long term (current) drug therapy
CPT/HCPCS: 70450; 72125; 99284; J7030; A4216